=== PATIENT | female | born 1940 | race Caucasian/White ===

== ENCOUNTER → 2018-05-12 | Outpatient (CLI) | payer OTHER ==
[~2018-05-12] MED LIST: ACETAMINOPHEN325 M1 PO; ACTONEL150 MG PO; CIPRO500 MG PO; COZAAR 25MG TAB25 MG PO; FLORANEX TABLE1 EACH PO; FOLIC ACID 1 MG1 MG PO; FOLIC ACID0.4 MG PO; LIPITOR10 MG PO; METHOTREXA25 MG/1 M1; METHOTREXATE 22.5 MG PO; METRONIDAZOLE500 M4 PO; NEXIUM 40 MG CA40 M1 PO; PRILOSEC 20 MG20 MG PO; PRISTIQ50 M1 PO; REMICADE 1100 MG/VIA IV; VANCOMYCIN100 MG/M1 PO; VITAMIN E PO; [UNRECOGNIZED DRUG - OTHER] IV
== END ==
LOC: MRI 09:36
DX: S43.431A Superior glenoid labrum lesion of right shoulder, initial encounter (principal); M19.011 Primary osteoarthritis, right shoulder; M75.51 Bursitis of right shoulder; W19.XXXA Unspecified fall, initial encounter; Y93.89 Activity, other specified; Y92.89 Other specified places as the place of occurrence of the external cause; Y99.8 Other external cause status

== ENCOUNTER → 2020-07-31 | Outpatient (CLI) | payer OTHER ==
[2020-07-31 11:07] LABS: CREATININE 1.1 mg/dL (0.6-1.0)
== END ==
LOC: CAT 09:40 → LAB 11:21
PROVIDERS: ATTEND Surgery
DX: I70.0 Atherosclerosis of aorta (principal); I77.1 Stricture of artery